=== PATIENT | male | born 1935 | race Caucasian/White ===

== ENCOUNTER 2017-06-30 14:44 | Emergency (ER) | payer MEDICARE, MEDICAID ==
[2017-06-30 16:36] LABS: ABS Basophils 0.1 10^3/ul (0-0.2); ABS Eosinophils 0.1 10^3/ul (0-0.6); ABS Lymphocytes 0.9 10^3/ul (1.0-4.8); ABS Monocytes 0.4 10^3/ul (0-0.8); ABS Neutrophils 13.2 10^3/ul (1.5-7.7); ABS Nucleated RBC 0.06 10^3/ul; Eosinophil % 0.6 % (0-6); Hematocrit 49 % (42-52); Hemoglobin 16.1 g/dl (14.0-18.0); Lymphocyte % 6.1 % (25-47); Mean Corpuscular HGB Conc 33 g/dl (31-36); Mean Corpuscular Hemoglobin 29 pg (27-31); Mean Corpuscular Volume 87 fL (80-94); Mean Platelet Volume 8 um3 (7.4-10.4); Nucleated Red Blood Cells % 0.4; Platelet Count 206 10^3/ul (150-450); Red Blood Count 5.57 10^6/ul (4.0-5.4); Red Cell Distribution Width 14 % (10.5-15); White Blood Count 14.6 10^3/ul (3.5-10.8)
[2017-06-30 16:51] LABS: EGFR Non-African American 42.8 (>60)
--- NOTE | 2017-06-30 16:59 | RAD ---
INDICATION: Left flank abdominal pain. COMPARISON: There are no prior studies available for comparison. TECHNIQUE: A CT scan of the abdomen and pelvis was performed without intravenous or oral contrast. Contiguous axial sections were obtained from the lung bases through the symphysis pubis. Images were reconstructed in the coronal and sagittal planes. FINDINGS: The lung bases are clear. No pleural effusion is present. The liver and spleen are within normal limits in size without significant focal abnormality on this noncontrast study. No calcified gallstones are seen. The pancreas appears to be within normal limits in size. The adrenal glands appear to be within normal limits. There is a small 5 mm calculus in the lower pole of the left kidney. There is perinephric stranding on the left side. There is dilatation of the left renal calyces and ureter to the level of the ureterovesical junction. At that point there is a 3.5 mm calculus which is causing moderate hydronephrosis. The prostate gland appears slightly enlarged measuring 5.1 cm in transverse dimension. The aorta is slightly tortuous and ectatic. There is mild calcific plaque present. No aneurysm is seen. No significant enlarged retroperitoneal lymph nodes are seen. The stomach, small and large bowel appear nondistended. The appendix is within normal limits. There is mild descending and sigmoid diverticulosis. There is no evidence for diverticulitis or colitis. No free intraperitoneal air or fluid is seen. No significant focal osseous abnormality is seen. IMPRESSION: THERE IS A 3.5 MM CALCULUS PRESENT AT THE LEFT URETEROVESICAL JUNCTION CAUSING MODERATE HYDRONEPHROSIS. THERE IS AN ADDITIONAL 5 MM CALCULUS IN THE LOWER POLE OF THE LEFT KIDNEY.
[2017-06-30] MEDS ORDERED: NS 0.9% 1000 ML* 1,000 ML IV ONE (17:40)
[2017-06-30] MEDS ORDERED: Morphine INJ* 2 MG/ML 1 ML CARPUJECT IV ONE (17:46)
[2017-06-30] MEDS ORDERED: Tamsulosin CAP* 0.4 MG PO ONE (17:46)
[2017-06-30] MEDS ORDERED: Ondansetron INJ* 2 MG/ML VIAL IV ONE (17:46)
[2017-06-30 17:50] LABS: Urine Appearance Cloudy; Urine Blood 3+ (Negative); Urine Color Amber; Urine Ketones Trace (Negative); Urine Protein 2+(100 mg/dL) (Negative); Urine Specific Gravity 1.027 (1.010-1.030); Urine Urobilinogen Negative (Negative)
--- NOTE | 2017-06-30 17:53 | ED ---
GI/ HPI - HPI Summary HPI Summary: 81M presents with left side back pain since last night. He states he thinks that he did something wrong to his back. He admits to nausea but no vomiting. no injury. no loss of bowel or bladder or saddle anaesthesia. He states pain wraps around to his abdomen. He has not taken anything for pain and pain is 7/ 10. He denies any dysuria. He admits to chills and feeling shaky but denies any known fever. He denies any hematuria, urgency, or frequency. Never had this pain before. no previous abdominal surgeries. has history of a fib. - History of Current Complaint Chief Complaint: EDBackInjuryPain Time Seen by Provider: 06/30/17 17:34 Stated Complaint: LT SIDE BACK PAIN/FEVER/NAUSEA Pain Intensity: 6 - Allergy/Home Medications Allergies/Adverse Reactions: Allergies Allergy/AdvReac Type Severity Reaction Status Date / Time No Known Allergies Allergy Verified 06/30/17 14:59 PMH/Surg Hx/FS Hx/Imm Hx Cardiovascular History: Reports: Hx Atrial Fibrillation Denies: Hx Pacemaker/ICD Sensory History: Reports: Hx Contacts or Glasses - RAEDING GLASSES Denies: Hx Hearing Aid Opthamlomology History: Reports: Hx Contacts or Glasses - RAEDING GLASSES Psychiatric History: Denies: Hx Panic Disorder - Cancer History Cancer Type, Location and Year: NEW DIAGNOSIS OF TIBIAL LESION CARCINOMA, UNSURE OF ACTUAL NAME - Surgical History Surgery Procedure, Year, and Place: 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 Negative: Vomiting, Diarrhea Positive: flank pain All Other Systems Reviewed And Are Negative: Yes Physical Exam Triage Information Reviewed: Yes Vital Signs On Initial Exam: Initial Vitals Temp Pulse Resp BP Pulse Ox 97.3 F 118 20 164/97 98 06/30/17 14:54 06/30/17 14:54 06/30/17 14:54 06/30/17 14:54 06/30/17 14:54 Vital Signs Reviewed: Yes Appearance: Positive: Well-Appearing Skin: Positive: Warm, Dry Head/Face: Positive: Normal Head/Face Inspection Eyes: Positive: Normal, EOMI, DE, Conjunctiva Clear ENT: Positive: Normal ENT inspection, Pharynx normal, TMs normal Respiratory/Lung Sounds: Positive: Clear to Auscultation, Breath Sounds Present Cardiovascular: Positive: Normal, RRR Abdomen Description: Positive: Soft, CVA Tenderness (L), Other: - nontender abdomen Bowel Sounds: Positive: Present Musculoskeletal: Positive: Normal Neurological: Positive: Normal Psychiatric: Positive: Normal - [place] Coma Scale Coma Scale Total: 15 Diagnostics - Vital Signs Vital Signs Temp Pulse Resp BP Pulse Ox 06/30/17 14:54 97.3 F 118 20 164/97 98 - Laboratory Lab Results: Lab Results 06/30/17 06/30/17 06/30/17 Range/Units 16:21 16:21 16:21 WBC 14.6 H (3.5-10.8) 10^3/ul RBC 5.57 H (4.0-5.4) 10^6/ul Hgb 16.1 (14.0-18.0) g/dl Hct 49 (42-52) % MCV 87 (80-94) fL MCH 29 (27-31) pg MCHC 33 (31-36) g/dl RDW 14 (10.5-15) % Plt Count 206 (150-450) 10^3/ul MPV 8 (7.4-10.4) um3 Neut % (Auto) 90.2 H (38-83) % Lymph % (Auto) 6.1 L (25-47) % [place] % (Auto) 2.6 (1-9) % Eos % (Auto) 0.6 (0-6) % Baso % (Auto) 0.5 (0-2) % Absolute Neuts (auto) 13.2 H (1.5-7.7) 10^3/ul Absolute Lymphs (auto) 0.9 L (1.0-4.8) 10^3/ul Absolute Monos (auto) 0.4 (0-0.8) 10^3/ul Absolute Eos (auto) 0.1 (0-0.6) 10^3/ul Absolute Basos (auto) 0.1 (0-0.2) 10^3/ul Absolute Nucleated RBC 0.06 10^3/ul Nucleated RBC % 0.4 Sodium 140 (133-145) mmol/L Potassium 4.7 (3.5-5.0) mmol/L Chloride 104 (101-111) mmol/L Carbon Dioxide 26 (22-32) mmol/L Anion Gap 10 (2-11) mmol/L BUN 24 (6-24) mg/dL Creatinine 1.57 H (0.67-1.17) mg/dL Est GFR ( Amer) 55.1 (>60) Est GFR (Non-Af Amer) 42.8 (>60) BUN/Creatinine Ratio 15.3 (8-20) Glucose 147 H (70-100) mg/dL Lactic Acid 1.9 (0.5-2.0) mmol/L Calcium 9.9 (8.6-10.3) mg/dL Total Bilirubin 0.80 (0.2-1.0) mg/dL AST 19 (13-39) U/L ALT 16 (7-52) U/L Alkaline Phosphatase 99 (34-104) U/L Total Protein 7.9 (6.4-8.9) g/dL Albumin 4.5 (3.2-5.2) g/dL Globulin 3.4 (2-4) g/dL Albumin/Globulin Ratio 1.3 (1-3) Result Diagrams: 06/30/17 16:21 06/30/17 16:21 Lab Statement: Any lab studies that have been ordered have been reviewed, and results considered in the medical decision making process. - CT abd CT Interpretation: Positive (See Comments) - IMPRESSION: THERE IS A 3.5 MM CALCULUS PRESENT AT THE LEFT URETEROVESICAL JUNCTION CAUSING MODERATE HYDRONEPHROSIS. THERE IS AN ADDITIONAL 5 MM CALCULUS IN THE LOWER POLE OF THE LEFT KIDNEY. CT Interpretation Completed By: Radiologist JONATHAN Course/Dx - Course Course Of Treatment: 81M presents with left side back pain since last night. He states he thinks that he did something wrong to his back. He admits to nausea but no vomiting. no injury. no loss of bowel or bladder or saddle anaesthesia. He states pain wraps around to his abdomen. He has not taken anything for pain and pain is 7/10. He denies any dysuria. He admits to chills and feeling shaky but denies any known fever. He denies any hematuria, urgency, or frequency. Never had this pain before. no previous abdominal surgeries. has history of a fib. on exam left CVA tenderness. nontender abdomen. wbc 14. urine no infection. spoke with dr chery will have follow up in office. patient understand and agrees with plan. - Diagnoses Differential Diagnoses - Male: Pyelonephritis, Ureteral Calculi, Urinary Tract Infection Provider Diagnoses: Ureteral stone Discharge - Discharge Plan Condition: Good Disposition: HOME Prescriptions: Ondansetron ODT TAB* [Zofran 4 MG Odt TAB*] 4 mg PO Q6H PRN #16 tab.odt PRN Reason: Nausea oxyCODONE/Acetamin 5/325 MG* [Percocet 5/325 TAB*] 1 tab PO Q6H PRN #16 tab MDD 4 PRN Reason: Pain Tamsulosin CAP* [Flomax CAP*] 0.4 mg PO DAILY #7 cap Patient Education Materials: Ureteral Stones (ED) Referrals: Jessica Alicea MD [Primary Care Provider] - Robel Chery MD [Medical Doctor] - Additional Instructions: Take Tylenol every 6 hours and narcotic as needed every 6 hours Take Zofran every 6 hours for nausea as needed Take Flomax daily starting tomorrow, first dose given in ED until stone expelled , make sure stand up slowly Follow up with urology, call office tomorrow for appointment Strain urine until collect stone Return to ED if unable to manage pain at home, develop fever, or any new or worsening symptoms
[2017-06-30] MEDS ORDERED: Morphine INJ* 4 MG/ML 1 ML CARPUJECT IV ONE (17:57)
[2017-06-30 18:53] VITALS: BP 155/94
== END 2017-06-30 18:51 | disposition home or self-care (01) ==
LOC: ED 14:44
DX: N13.0 Hydronephrosis with ureteropelvic junction obstruction (principal); N20.0 Calculus of kidney; Z87.891 Personal history of nicotine dependence; I48.91 Unspecified atrial fibrillation; C40.20 Malignant neoplasm of long bones of unspecified lower limb
CPT/HCPCS: 36415; 74176; 80053; 81003; 81015; 83605; 85025; 96360; 96374; 96375; 99283; J2270; J2405